=== PATIENT | female | born 1980 | race Caucasian/White ===

== ENCOUNTER 2024-04-18 08:28 | Day surgery (SDC) | payer MEDICARE, OTHER ==
[~2024-04-18] VITALS: Ht 165.1 cm; Wt 64.7 kg
[~2024-04-18 08:28] MED LIST: Famotidine 20 MG TAB PO SCH; LR 1,000 ML IV SCH; Lidocaine PF 2% (20 MG/ML) 5 ML VIAL ONE; Midazolam 2 MG/2 ML VIAL ONE; NS 10 ML IV ONE; Ondansetron 4 MG/2 ML VIAL ONE; Scopolamine 1 MG Delivered 3-Day PATCH TD SCH; dexAMETHasone 10 MG/ML VIAL ONE; fentaNYL 50 MCG/ML 2 ML VIAL ONE
[2024-04-18] MEDS ORDERED: Ondansetron 4 MG/2 ML VIAL IV PRN ×2 (09:00→12:30)
[2024-04-18] MEDS ORDERED: Meperidine 50 MG/ML 1 ML VIAL IV PRN (09:00)
[2024-04-18] MEDS ORDERED: Morphine 2 MG/1 ML VIAL [PACU/SDC ONLY] IV PRN (09:00)
[2024-04-18] MEDS ORDERED: HYDROmorphone 1 MG/1 ML SYRINGE [PACU/SDC ONLY] IV PRN (09:00)
[2024-04-18 09:46] VITALS: BP 108/75; PULSE 81; TEMP 97.6
[2024-04-18] MEDS ORDERED: SEROQUEL 1100 MG/TAB PO (09:54)
[2024-04-18] MEDS ORDERED: NS 10 ML VIAL IJ ONE (10:12)
[2024-04-18 11:55] VITALS: BP 101/69; PULSE 73; TEMP 97.5
[2024-04-18 12:15] VITALS: BP 100/69; PULSE 72
[2024-04-18] MEDS ORDERED: oxyCODONE/Acetaminophen 5-325 MG TAB PO PRN (12:30)
--- NOTE | 2024-04-18 13:40 | NUR ---
1155- PATIENT BACK FROM PACE BY CART TO BAY 2. VSS. PATIENT HAS ICE ON SHOULDER. REPORT GIVEN. 1215- PATIENT STARTING TO HAVE BURNING PAIN 8/10 IN RIGHT SHOULDER. GIVEN AT 1230. 1325-IV DC'D. TIP INTACT. 1330-DISCHARGE INSTRUCTIONS GIVEN. PATIENT VERBALIZED UNDERSTANDING. 1345-PATIENT DC'D BY WHEELCHAIR. TAKEN TO OWN PERSONAL VEHICLE.
== END 2024-04-18 13:40 | disposition home or self-care (01) ==
LOC: SDCO 08:28
DX: S43.491A Other sprain of right shoulder joint, initial encounter (principal); M25.511 Pain in right shoulder; Z87.891 Personal history of nicotine dependence
CPT/HCPCS: A4619; C1713; J0690; J1100; J2250; J2405; J2704; J2795; J3010; J7120